=== PATIENT | female | born 1970 | race Caucasian/White ===

== ENCOUNTER 2018-01-22 22:37 | Emergency (ER) | payer BC, OTHER ==
[2018-01-22 22:59] VITALS: BP 124/75
[2018-01-22] MEDS ORDERED: cephALEXin 250 MG CAPSULE PO STA (22:59)
[2018-01-22] MEDS ORDERED: SULFAMETH/TRIMETH DS 800/160 MG TABLET PO STA (22:59)
--- NOTE | 2018-01-22 23:02 | ED Physician Documentation ---
History of Present Illness - Stated complaint Stated Complaint: R EYE IRRITATION/POSS SPIDER BITE ON BUTTOCK - Chief complaint Chief Complaint: General - History obtained from History obtained from: Patient - History of Present Illness Timing: How many days ago (several) Pain level max: 1 Pain level now: 1 Improved by: nothing Worsened by: nothing - Additonal information Additional information: Patient is a 47-year-old female who presents to the emergency department with swelling to the right upper eyelid for the past few days. States has had styes in the past, but this 1 is not improving with warm compresses. Also states on the left buttock she has an area of redness and itching, concern for possible spider bite. No fevers. Review of Systems Constitutional: denies: Fever, Chills Nose: denies: Rhinorrhea / runny nose, Congestion Cardiac: denies: Chest pain / pressure Respiratory: denies: Cough, Wheezing : denies: Now [facility] PAST MEDICAL HISTORY - Past Medical History Past Medical History: Yes - Present Medications Home Medications: Ambulatory Orders Medication Instructions Recorded Confirmed Cephalexin [Keflex] 500 mg PO Q6H #28 capsule 01/22/18 Sulfamethox/Trimeth 800/160 1 each PO BID #14 tablet 01/22/18 [Bactrim Ds 800/160] - Allergies Allergies/Adverse Reactions: Allergies Allergy/AdvReac Type Severity Reaction Status Date / Time No Known Drug Allergies Allergy Verified 01/22/18 23:12 - Living Situation Living Situation: reports: With family Living Arrangement: reports: At home PD ED PE NORMAL - Vitals Vital signs reviewed: Yes - General General: Alert and oriented X 3, No acute distress - HEENT HEENT: Moist mucous membranes, Other (R upper eyelid with erythema and swelling. no drainage.) - Neck Neck: Supple, no meningeal sign - Derm Derm: Warm and dry, Other (L buttock, 2x3cm area of erythema with mild indura tion and no fluctuance. NVI. no drainage.) - Neuro Neuro: Alert and oriented X 3 Results - Vitals Vitals: Vital Signs - 24 hr 01/22/18 22:46 Temperature 37.0 C Heart Rate 77 Respiratory 16 Rate Blood Pressure 124/75 O2 Saturation 99 Oxygen O2 Source Room air PD MEDICAL DECISION MAKING - ED course Complexity details: considered differential, d/w patient ED course: 47-year-old female with left buttock cellulitis, possible early abscess. Nothing to drain at this point. Will place on antibiotics for this. Also appears to have a stye of the right upper eyelid. We will see how she progresses well as she will now be on antibiotics and follow-up closely with her doctor. She is well-appearing, nontoxic. Afebrile. Patient counseled regarding signs and symptoms for which I believe and urgent re-evaluation would be necessary. Patient with good understanding of and agreement to plan and is comfortable going home at this time This document was made in part using voice recognition software. While efforts are made to proofread this document, sound alike and grammatical errors may occur. Departure - Departure Disposition: 01 Home, Self Care Clinical Impression: Cellulitis and abscess of buttock Stye external Qualifiers: Laterality: right Eyelid: upper Qualified Code(s): H00.011 - Hordeolum externum right upper eyelid Condition: Good Instructions: ED Infec Skin Cellulitis, ED Chalazion Follow-Up: Abhishek Cardozo DO [Primary Care Provider] - Within 1 week Prescriptions: Cephalexin [Keflex] 500 mg PO Q6H #28 capsule Sulfamethox/Trimeth 800/160 [Bactrim Ds 800/160] 1 each PO BID #14 tablet Comments: Take all antibiotics until gone. Return if you worsen. Your prescriptions were sent to [facility]. Discharge Date/Time: 01/22/18 23:14
== END 2018-01-22 23:14 | disposition home or self-care (01) ==
LOC: ED 22:37
DX: H00.011 Hordeolum externum right upper eyelid (principal); N73.2 Unspecified parametritis and pelvic cellulitis
CPT/HCPCS: 99283; A9270

== ENCOUNTER 2019-06-22 08:13 | Outpatient (CLI) | payer OTHER ==
--- NOTE | 2019-06-22 12:02 | MRI Report ---
Reason: PAIN IN ANKLE AND JOINTS OF FOOT Procedure Date: 06/22/2019 Accession Number: [id number] / [id number] Procedure: MRI - Ankle LT W/O CPT Code: Final Report FULL RESULT: EXAM: LEFT ANKLE/HINDFOOT MRI WITHOUT CONTRAST EXAM DATE: 06/22/2019 09:48 AM. CLINICAL HISTORY: Pain in ankle and joints of foot. COMPARISON: None. TECHNIQUE: Multiplanar, multisequence T1-weighted and fluid-sensitive sequences of the ankle/hindfoot without contrast. Other: None. FINDINGS: Bones: No fractures or subluxations. No marrow edema. No bone lesions. Articular Cartilage: Unremarkable. Ligaments: The anterior and posterior tibiofibular, anterior and posterior talofibular, and calcaneofibular ligaments are intact. The deep and superficial deltoid and spring ligaments are intact. Anterior Tendons: The tibialis anterior, extensor hallucis longus, and extensor digitorum longus tendons are unremarkable. Medial Tendons: The tibialis posterior, flexor digitorum longus, and flexor hallucis longus tendons are unremarkable. Lateral Tendons: The peroneus brevis and longus are unremarkable. Achilles Tendon: The Achilles tendon is unremarkable. Musculature: No edema or fatty atrophy. Other: No effusions. Tarsal tunnel appears unremarkable. Sinus tarsi shows a ganglion cyst in the anterolateral aspect. Series 701 image 18, series 501 image 8. No plantar fasciitis. The subcutaneous tissues are unremarkable. IMPRESSION: 1. Medial and lateral collateral ligament complexes appear unremarkable. Tendons of plantar flexion and anteflexion including the Achilles also appear normal. 2. Bones and articular surfaces appear unremarkable. 3. Moderate-sized ganglion cyst is seen at the anterior lateral aspect of the sinus tarsi. RADIA
== END 2019-06-22 08:14 | disposition home or self-care (01) ==
LOC: DI 08:13
PROVIDERS: ATTEND Family Medicine
DX: M67.472 Ganglion, left ankle and foot (principal)

== ENCOUNTER 2019-12-31 12:20 | Outpatient (CLI) | payer OTHER ==
--- NOTE | 2020-01-08 12:02 | Mammography Report ---
BILATERAL DIGITAL SCREENING MAMMOGRAM 3D/2D: 12/31/2019 CLINICAL: Routine screening. Comparison is made to exam dated: 11/17/2014 mammogram - [facility]. The tissue of both breasts is heterogeneously dense. This may lower the sensitivity of mammography. No significant masses, calcifications, or other findings are seen in either breast. There has been no significant interval change. IMPRESSION: NEGATIVE There is no mammographic evidence of malignancy. A 1 year screening mammogram is recommended. This exam was interpreted at Station ID: [id number]. NOTE: For mammograms, a report in lay terms will be sent to the patient. Approximately 15% of breast malignancies will not be visualized mammographically. In the management of a palpable breast mass, a negative mammogram must not discourage biopsy of a clinically suspicious lesion. Electronically Signed By: Yonathan Mera M.D. ddrolan/penrad:01/08/2020 07:55:14 ACR BI-RADS Category 1: Negative 3341F PARENCHYMAL PATTERN: (D) - The breast(s) demonstrate(s) heterogeneously dense fibroglandular gene murray. BI-RADS CATEGORY: (1) - 1 RECOMMENDATION: (ANNUAL) - Recommend routine annual screening mammography. [id number] 1 year screening LATERALITY: (B)
== END 2019-12-31 12:21 | disposition home or self-care (01) ==
LOC: DI.N 12:20
DX: Z12.31 Encounter for screening mammogram for malignant neoplasm of breast (principal)
CPT/HCPCS: 77063; 77067

== ENCOUNTER 2020-12-31 12:37 | Outpatient (CLI) | payer OTHER ==
--- NOTE | 2021-01-01 09:27 | Mammography Report ---
BILATERAL DIGITAL SCREENING MAMMOGRAM 3D/2D: 12/31/2020 CLINICAL: Routine screening. Comparison is made to exams dated: 12/31/2019 mammogram, 11/17/2014 mammogram - [facility], 09/30/2013 mammogram, 09/18/2012 mammogram, and 07/27/2011 mammogram - [facility]. The tissue of both breasts is heterogeneously dense. This may lower the sensitivity of mammography. There are benign calcifications in both breasts. No significant masses, calcifications, or other findings are seen in either breast. There has been no significant interval change. IMPRESSION: BENIGN There is no mammographic evidence of malignancy. A 1 year screening mammogram is recommended. This exam was interpreted at Station ID: [id number]. NOTE: For mammograms, a report in lay terms will be sent to the patient. Approximately 15% of breast malignancies will not be visualized mammographically. In the management of a palpable breast mass, a negative mammogram must not discourage biopsy of a clinically suspicious lesion. Electronically Signed By: Yonathan Mera M.D. ddp/penrad:12/31/2020 15:14:40 ACR BI-RADS Category 2: Benign Finding(s) 3342F PARENCHYMAL PATTERN: (D) - The breast(s) demonstrate(s) heterogeneously dense fibroglandular gene murray. BI-RADS CATEGORY: (2) - 2 RECOMMENDATION: (ANNUAL) - Recommend routine annual screening mammography. [id number] 1 year screening LATERALITY: (B)
== END 2020-12-31 12:38 | disposition home or self-care (01) ==
LOC: DI.N 12:37
DX: Z12.31 Encounter for screening mammogram for malignant neoplasm of breast (principal)